=== PATIENT | male | born 1955 | race Caucasian/White ===

== ENCOUNTER 2017-12-19 13:46 | Outpatient (CLI) | payer MEDICAID ==
[~2017-12-19] VITALS: Ht 177.8 cm; Wt 115.2 kg
[2017-12-19 15:45] LABS: BASOPHILS % (AUTO) 0.3 % (0-1); EOSINOPHILS # (AUTO) 0.1 X10'3 (0-0.9); EOSINOPHILS % (AUTO) 1.6 % (0-6); LYMPHOCYTES # (AUTO) 2.8 X10'3 (1.1-4.8); LYMPHOCYTES % (AUTO) 32.8 % (21-51); MEAN CORPUSCULAR HEMOGLOBIN 30.2 PG (27.0-31.0); MEAN CORPUSCULAR VOLUME 91.4 FL (78-98); MEAN PLATELET VOLUME 9.1 FL (7.4-10.4); MONOCYTES # (AUTO) 0.8 X10'3 (0-0.9); MONOCYTES % (AUTO) 9.7 % (2-12); NEUTROPHILS # (AUTO) 4.7 X10'3 (1.8-7.7); NEUTROPHILS % (AUTO) 55.6 % (42-75); PRE OP HEMATOCRIT 50.1 % (42.0-52.0); PRE OP HEMOGLOBIN 16.6 g/dL (14.0-17.9); PRE OP PLATELET COUNT 226 X10'3 (140-440); RED BLOOD COUNT 5.48 X10'6 (4.70-6.10); RED CELL DISTRIBUTION WIDTH 16.5 % (11.5-14.5)
[2017-12-19 15:54] LABS: PRE OP PROTIME 16.6 SECONDS (9.0-12.0)
[2017-12-19 15:59] LABS: ALBUMIN 3.4 G/DL (3.4-5.0); ALBUMIN/GLOBULIN RATIO 0.8 (1.1-1.5); ALKALINE PHOSPHATASE 222 IU/L (46-116); BLOOD UREA NITROGEN 13 MG/DL (7-18); BUN/CREATININE RATIO 13.5 (5.4-32.0); CALCIUM 9.3 MG/DL (8.5-10.1); CHLORIDE 102 MMOL/L (99-107); CREATININE 0.96 MG/DL (0.60-1.10); PRE OP ALT 22 U/L (30-65); PRE OP ANION GAP 7 (8-16); PRE OP AST 21 U/L (10-37); PRE OP BILIRUB, TOTAL 1.3 MG/DL (0.0-1.0); PRE OP GLUCOSE 124 MG/DL (70-104); PRE OP POTASSIUM 3.9 MMOL/L (3.4-5.1); PRE OP SODIUM 141 MMOL/L (135-145); TOTAL CARBON DIOXIDE 31.6 MMOL/L (24-32); TOTAL PROTEIN 7.6 G/DL (6.4-8.2); eGFR 80 ML/MIN
[2017-12-19] MEDS ORDERED: ALBU18HF2 INH (15:59)
[2017-12-19] MEDS ORDERED: NITR4.1S2 TL (15:59)
[2017-12-19] MEDS ORDERED: ATOR40TA PO (15:59)
[2017-12-19] MEDS ORDERED: LISI40TA4 PO (15:59)
[2017-12-19] MEDS ORDERED: POTA10CA44 PO (15:59)
[2017-12-19] MEDS ORDERED: FURO80TA87 PO (15:59)
[2017-12-19] MEDS ORDERED: CARV-50 PO (15:59)
[2017-12-19] MEDS ORDERED: RANI150T12 PO (15:59)
[2017-12-19] MEDS ORDERED: RIVA20TA PO (15:59)
[2017-12-19 16:10] LABS: PRE OP INR 1.6 INR
[2017-12-21] MEDS ORDERED: ringers solution, lacted 1,000 ML IV SCH (05:00)
[2017-12-21] MEDS ORDERED: DOCUMENT DATE & TIME OF BETA-BLOCKER PO ONE (05:30)
[2017-12-21] MEDS ORDERED: albuterol 2.5 MG/3 ML nebule NEB ONE (05:30)
[2017-12-21] MEDS ORDERED: cefazolin/dext.iso 2gm/50ml 50 ML IV ONE (05:30)
[2017-12-21] MEDS ORDERED: famotidine 20mg tablet PO ONE (05:30)
== END 2017-12-19 23:59 | disposition home or self-care (01) ==
LOC: PRE-OP 13:46 → EDSTATUS 12-21 10:45
PROVIDERS: ATTEND Physician Assistant
DX: Z01.818 Encounter for other preprocedural examination (principal); R94.31 Abnormal electrocardiogram [ECG] [EKG]; M19.031 Primary osteoarthritis, right wrist; M25.531 Pain in right wrist; G56.01 Carpal tunnel syndrome, right upper limb; I48.91 Unspecified atrial fibrillation
CPT/HCPCS: 36415; 71046; 80053; 85025; 85610; 85730; 93005